=== PATIENT | male | born 1990 | race Two or more races ===

== ENCOUNTER 2024-11-25 02:58 | Emergency (ER) | payer MEDICAID, OTHER ==
[~2024-11-25] VITALS: Ht 175.3 cm; Wt 72.6 kg
[2024-11-25 03:06] VITALS: TEMP 97.6
[2024-11-25] MEDS ORDERED: KETOROLAC TROMETHAMINE INJ 30 MG/ML VIAL ONE (03:11)
[2024-11-25] MEDS: IV NS 0.9% 1,000 ML BAG IV ONE (03:21)
[2024-11-25] MEDS: KETOROLAC TROMETHAMINE 15 MG/ML VIAL IV ONE (03:21)
[2024-11-25 03:28] LABS: PLATELET COUNT (AUTO) 262 K/uL (150-450); RED BLOOD CELL COUNT(AUTO) 6.08 MIL/uL (4.5-6.0); RED CELL DISTRIBUTION WIDTH 12.8 % (11.5-15.0); WHITE BLOOD COUNT (AUTO) 16.9 K/uL (4.3-11.0)
[2024-11-25 03:30] VITALS: BP 125/97; O2SAT 98
[2024-11-25 03:37] LABS: CALCIUM, SERUM 9.5 mg/dL (8.5-10.1); CREATININE 1.6 mg/dL (0.6-1.3); SODIUM SERUM 142.0 mmol/L (136-145); UREA NITROGEN, BLOOD 20.0 mg/dL (7-18)
[2024-11-25 03:44] LABS: ASPARTATE AMINOTRANSFERASE 24.0 U/L (15-37); TOTAL PROTEIN, SERUM 7.8 g/dL (6.4-8.2)
[2024-11-25] MEDS ORDERED: KETO10TA2 PO (03:58)
[2024-11-25] MEDS ORDERED: TAMS-12 PO (03:58)
[2024-11-25] MEDS ORDERED: MORPHINE SULFATE INJ 4 MG/ML DISP.SYRIN ONE (04:02)
[2024-11-25] MEDS: MORPHINE SULFATE INJ 2 MG/ML DISP.SYRIN IV ONE (04:03)
[2024-11-25] MEDS ORDERED: CIPR500T5 PO (05:16)
[2024-11-25 05:56] LABS: APPEARANCE,URINE CLOUDY (CLEAR); BLOOD, URINE 3+ Ery/uL (NEGATIVE); LEUKOCYTE ESTERASE ,URINE NEGATIVE (NEGATIVE); NITRITE, URINE NEGATIVE (NEGATIVE); UGLUCOSE NEGATIVE (NEGATIVE)
[2024-11-25 06:10] LABS: ADD URINE CULTURE NO; CALCIUM OXALATE CRYSTALS,UR Rare /HPF (None Seen); SQUAMOUS EPITHELIAL CELL,UR Rare /HPF (None Seen)
== END 2024-11-25 05:31 | disposition home or self-care (01) ==
LOC: ER 02:59
DX: N13.2 Hydronephrosis with renal and ureteral calculous obstruction (principal); R10.9 Unspecified abdominal pain
CPT/HCPCS: 99285; 74176; 96374; 96361; 96375; 85025; 80048; 83690; 80076; 81001; 36415; J1885; J2270; J7030